=== PATIENT | male | born 1960 | race African-American/Black ===

== ENCOUNTER → 2017-11-20 | Outpatient (CLI) | payer MEDICAID ==
--- NOTE | 2017-11-20 13:02 | RADIOLOGY REPORT (SQ) ---
EXAM DESCRIPTION: ELBOW LEFT OVER 2 VIEWS COMPLETED DATE/TIME: 11/20/2017 12:16 pm REASON FOR STUDY: PAIN IN LEFT ELBOW M25.522 PAIN IN LEFT ELBOW COMPARISON: None. NUMBER OF VIEWS: Four views. TECHNIQUE: AP, lateral, and both oblique radiographic images acquired of the left elbow. LIMITATIONS: Patient's shirt sleeve scrunched up over the biceps FINDINGS: MINERALIZATION: Normal. BONES: No acute fracture or dislocation. Prominent olecranon bony spur. No bone spur fracture or ag gressive demineralization. There is bony spurring along the medial and lateral epicondyles, without superimposed acute fracture. JOINT: No gross elbow joint effusion. SOFT TISSUES: Mild olecranon soft tissue swelling. No foreign body. OTHER: No other significant finding. IMPRESSION: Bulky olecranon bone spur at the attachment of the triceps tendon. No superimposed frac ture Bony spurring along the medial and lateral epicondyles No acute fracture. No gross joint effusion TECHNICAL DOCUMENTATION: JOB ID: [id number] [employer]- All Rights Reserved
== END ==
LOC: RAD 11:54
PROVIDERS: ATTEND Family Medicine
DX: M25.522 Pain in left elbow (principal); M77.8 Other enthesopathies, not elsewhere classified

== ENCOUNTER 2018-12-03 09:10 | Emergency (ER) | payer MEDICAID ==
[2018-12-03 09:46] VITALS: BP 163/99
--- NOTE | 2018-12-03 10:05 | ER Document Report ---
HPI - HPI Time Seen by Provider: 12/03/18 10:01 Pain Level: 5 Notes: Patient is a 58-year-old male who presents with chief complaint of right knee pain. Patient reports he fell onto his knee yesterday. Patient reports he is able to ambulate. Denies any history of trauma to this knee previously. - REPRODUCTIVE Reproductive: DENIES: : Past Medical History - General Information source: Patient - Social History Smoking Status: Never Smoker Frequency of alcohol use: None Drug Abuse: None Family History: Reviewed & Not Pertinent - Past Medical History Cardiac Medical History: Reports: Hx Hypertension Pulmonary Medical History: Denies: Hx Tuberculosis Neurological Medical History: Denies: Hx Seizures Skin Medical History: Denies Hx MRSA Past Surgical History: Denies: Hx Appendectomy, Hx Bowel Surgery, Hx Cholecystectomy, Hx Coronary Artery Bypass Graft, Hx Gastric Bypass Surgery, Hx Herniorrhaphy, Hx Pacemaker, Hx Tonsillectomy - Immunizations Hx Diphtheria, Pertussis, Tetanus Vaccination: Yes - 12/14/11 Vertical Provider Document - CONSTITUTIONAL Notes: PHYSICAL EXAMINATION: GENERAL: Well-appearing, well-nourished and in no acute distress. HEAD: Atraumatic, normocephalic. EYES: Pupils equal round extraocular movements intact, conjunctiva are normal. ENT: Nares patent NECK: Normal range of motion LUNGS: No respiratory distress Musculoskeletal: Normal range of motion, tenderness to palpation over distal aspect of right knee, no to crepitus or deformity noted all pulses palpable. NEUROLOGICAL: Normal speech, normal gait. PSYCH: Normal mood, normal affect. SKIN: Warm, Dry, normal turgor, no rashes or lesions noted. - INFECTION CONTROL TRAVEL OUTSIDE OF THE [place] IN LAST 30 DAYS: No Course - Re-evaluation Re-evalutation: 12/03/18 11:16 Transversely oriented fracture through a superior anterior tibial enthesophyte. Will place patient in a knee immobilizer and crutches will follow up with orthopedic. - Vital Signs Vital signs: Temp Pulse Resp BP Pulse Ox 97.5 F 99 18 163/99 H 94 12/03/18 09:44 12/03/18 09:44 12/03/18 09:44 12/03/18 09:44 12/03/18 09:44 Procedures - Immobilization Right knee Pre-Proc Neuro Vasc Exam: Normal Immobilizer type: Crutches, Knee immobilizer Performed by: PCT Post-Proc Neuro Vasc Exam: Normal Alignment checked and good: Yes Discharge - Discharge Clinical Impression: Fracture Condition: Stable Disposition: HOME, SELF-CARE Additional Instructions: Fracture You have a fracture. The typical broken bone requires only protection and sufficient time for healing. "Setting" is necessary only if the bones are crooked or out of position. The physician will re-assess you periodically to make certain that the bone heals without complications. It's important that you follow the instructions given you. The initial treatment is immobilization, elevation of the injury, and cold packs. Not all fractures require a cast. Depending on the location and type of fracture, immobilization may consist of a splint, cast, sling, bulky dressing, or simply rest. The length of time required for healing depends on the location and type of fracture, and on the age of the patient. The treatment plan the physician has outlined for you is customized to your fracture and health condition. Call the doctor or return at once if pain becomes severe, or if severe swelling or numbness develop. Ice & Elevation Apply ice packs frequently against the painful area. Many different schedules are recommended, such as "20 minutes on, 20 minutes off" or "one hour ice, two hours rest." If you need to work, you may need to go longer between ice treatments. You should plan to have the area ice packed AT LEAST one-fourth of the time. The ice should be applied over the wrap, tape, or splint, or over a layer of cloth -- not directly against the skin. Some ice bags have a built-in cloth and can be put directly on the skin. Your injured part should be elevated as much as possible over the next 48 hours. Try to keep the injury above the level of the heart. Avoid use of the injured area. Elevation and rest will decrease the swelling. Ibuprofen Ibuprofen is an excellent, safe drug for pain control. In addition, it has potent antiinflammatory effects which are beneficial, especially in the tr eatment of injuries, arthritis, or tendonitis. It's best to take ibuprofen with food. Persons with ulcer disease or allergy to aspirin should notify their physician of this before taking ibuprofen. Take the medication exactly as prescribed. Don't take additional doses unless instructed to do so by your doctor. If you develop wheezing, shortness of breath, hives, faintness, stomach pain, vomiting, or dark black stools, return for re-evaluation at once. There appears to be a fracture to the bone just below your knee. Over the next several days I would recommend icing and elevating as outlined above. Take ibuprofen 600 mg every 6 hours. Use the Percocet for severe pain only. Please use caution with using Percocet as if you are not used to taking it and may make you feel a little dizzy or unsteady on your feet. Try to stay off of the knee until cleared by orthopedics. Prescriptions: Oxycodone HCl/Acetaminophen [Percocet 5-325 mg Tablet] 1 tab PO Q4H PRN #15 tablet PRN Reason: Referrals: ROBYN PERRIN MD [ACTIVE STAFF] - Follow up as needed
[2018-12-03] MEDS ORDERED: HYDROCODONE/ACETAMINOPHEN 5-325 MG TABLET PO ONE (11:08)
--- NOTE | 2018-12-03 11:08 | RADIOLOGY REPORT (SQ) ---
EXAM DESCRIPTION: KNEE RIGHT 4 VIEWS COMPLETED DATE/TIME: 12/03/2018 10:40 am REASON FOR STUDY: fall, right knee pain COMPARISON: None. NUMBER OF VIEWS: Four views. TECHNIQUE: AP, lateral, and both oblique radiographic images acquired of the right knee. LIMITATIONS: None. FINDINGS: MINERALIZATION: Normal. BONES: Superior anterior tibial enthesophyte with transverse lucency compatible with fracture. No ad ditional fractures visualized. No evidence of dislocation. Superior and inferior patellar enthesoph ytes noted. JOINT: No effusion. SOFT TISSUES: Mild pretibial and prepatellar soft tissue swelling. Scattered vascular calcifications . No radiopaque foreign body. OTHER: No other significant finding. IMPRESSION: Transversely oriented fracture through a superior anterior tibial enthesophyte. Mild as sociated soft tissue swelling. No additional evidence of acute bony abnormality. TECHNICAL DOCUMENTATION: JOB ID: [id number] [employer]- All Rights Reserved Reading location - IP/workstation name: [email or web address]
== END 2018-12-03 11:38 | disposition home or self-care (01) ==
LOC: ER 09:10
DX: S82.221A Displaced transverse fracture of shaft of right tibia, initial encounter for closed fracture (principal); W18.30XA Fall on same level, unspecified, initial encounter; I10 Essential (primary) hypertension
CPT/HCPCS: 99283; 73564; L1830